=== PATIENT | male | born 1960 | race African-American/Black ===

== ENCOUNTER 2017-12-19 15:45 | Inpatient (IN) | payer BC ==
[2017-12-19] MEDS: NS 0.9% 1000 ML* 1,000 ML IV SCH (17:53)
[2017-12-19] MEDS: Pantoprazole IV* 40 MG IV SCH (18:09)
--- NOTE | 2017-12-19 18:38 | ED ---
Mejia Linares Stephanie, scribed for Henrry Crabtree MD on 12/19/17 at 1555 . GI/ HPI - HPI Summary HPI Summary: The pt is a 57 y/o M BIBA from the ED with c/o blood in the stool that began this morning. The pt reports BM 3x today. Symptoms include syncope with LOC s/p final BM. He denies abd pain. - History of Current Complaint Time Seen by Provider: 12/19/17 15:50 Stated Complaint: GENERAL ILLNESS Hx Obtained From: Patient Onset/Duration: Started Hours Ago, Still Present Timing: Intermittent Current Severity: Moderate Location of Pain: None Associated Signs and Symptoms: Positive: Syncope, Blood w/Stool, Other: - LOC. Negative: Abdominal Pain Aggravating Factor(s): Nothing Alleviating Factor(s): Nothing - Allergy/Home Medications Allergies/Adverse Reactions: Allergies Allergy/AdvReac Type Severity Reaction Status Date / Time No Known Allergies Allergy Verified 12/19/17 15:49 Home Medications: Home Medications Multivitamins/Minerals TAB* [Theragran/minerals TAB*] 1 tab PO DAILY 12/19/17 [ History Confirmed 12/19/17] Olmesartan (NF) [Benicar (NF)] 5 mg PO DAILY 12/19/17 [History Confirmed ] Ubidecarenone [Coq10] 100 mg PO DAILY 12/19/17 [History Confirmed 12/19/17] PMH/Surg Hx/FS Hx/Imm Hx Cardiovascular History: Reports: Hx Hypertension Sensory History: Denies: Hx Legally Blind EENT History: Denies: Hx Deafness - Surgical History Surgery Procedure, Year, and Place: NONE - Family History Known Family History: Negative: Renal Disease Review of Systems Negative: Fever Positive: Other - blood in the stool. Negative: Abdominal Pain Positive: Syncope - LOC. Negative: Slurred Speech All Other Systems Reviewed And Are Negative: Yes Physical Exam - Summary Physical Exam Summary: General: well-appearing, no pain distress Skin: warm, color reflects adequate perfusion, dry Head: normal Eyes: EOMI, BIJAN ENT: normal Neck: supple, nontender Respiratory: CTA, breath sounds present Cardiovascular: RRR Abdomen: soft, nontender Bowel: present Musculoskeletal: normal, strength/ROM intact Neurological: sensory/motor intact, A&O x3 Psychological: affect/mood appropriate Triage Information Reviewed: Yes Vital Signs On Initial Exam: Initial Vitals BP 133/87 12/19/17 15:59 Vital Signs Reviewed: Yes Diagnostics - Vital Signs Vital Signs Resp BP 12/19/17 16:00 20 12/19/17 15:59 133/87 - Laboratory Lab Statement: Any lab studies that have been ordered have been reviewed, and results considered in the medical decision making process. GIGU Course/Dx - Course Course Of Treatment: ADMIT HOSPITALIST - Diagnoses Provider Diagnoses: GI bleed, Syncope - Physician Notifications Discussed Care Of Patient With: Makenzie Cheng Time Discussed With Above Provider: 16:10 Instructed by Provider To: Admit As Inpatient Discharge - Sign-Out/Discharge Documenting (check all that apply): Discharge/Admit/Transfer - Discharge Plan Condition: Stable Disposition: ADMITTED TO [facility] - Billing Disposition and Condition Condition: STABLE Disposition: [facility] [place] The documentation as recorded by the Mejia ricci Stephanie accurately reflects the service I personally performed and the decisions made by , Henrry Crabtree MD.
[2017-12-19 18:43] LABS: ABS Basophils 0 10^3/ul (0-0.2); ABS Eosinophils 0 10^3/ul (0-0.6); ABS Lymphocytes 0.7 10^3/ul (1.0-4.8); ABS Monocytes 0.3 10^3/ul (0-0.8); ABS Neutrophils 9.9 10^3/ul (1.5-7.7); ABS Nucleated RBC 0 10^3/ul; Eosinophil % 0 % (0-6); Hematocrit 28 % (42-52); Hemoglobin 9.1 g/dl (14.0-18.0); Lymphocyte % 6.5 % (25-47); Mean Corpuscular HGB Conc 33 g/dl (31-36); Mean Corpuscular Hemoglobin 30 pg (27-31); Mean Corpuscular Volume 90 fL (80-94); Mean Platelet Volume 9.4 um3 (7.4-10.4); Nucleated Red Blood Cells % 0.1; Platelet Count 150 10^3/ul (150-450); Red Blood Count 3.08 10^6/ul (4.0-5.4); Red Cell Distribution Width 14 % (10.5-15); White Blood Count 10.9 10^3/ul (3.5-10.8)
[2017-12-19 18:51] LABS: INR 0.97 (0.77-1.02)
--- NOTE | 2017-12-19 19:49 | HP ---
HISTORY AND PHYSICAL: DATE OF ADMISSION: 12/19/17 TIME OF ADMISSION: 04:40 p.m. CHIEF COMPLAINT: Bright red blood per rectum. HISTORY OF PRESENT ILLNESS: This is a 57-year-old man, who had been in his usual state of health until this morning when he experienced 3 episodes of bright red blood per rectum and diarrhea. He is currently visiting from [place] and was in [place] for the road race. He went to his bathroom this morning and had one episode of diarrhea that was also associated with bright red blood that filled the bowl. He had no associated cramps or abdominal pain with this. Then, he had a second episode an hour later and then a third episode after that. After the third episode, he stood up from the toilet and passed out. He awoke on the ground after which point EMS was called. He was taken to [facility] where his hemoglobin was found to be 9.5 and he was transferred [place] [facility] [place]. At this time, he has no complaints except feeling hungry. He has no abdominal pain, lightheadedness, or dizziness. No rectal pain. No abdominal cramping. He denies use of NSAIDs. He says he took one Motrin one month ago, and he takes aspirin 81 mg approximately 4 times a week. He drinks alcohol only occasionally and says he usually will only have one drink per weekends. PAST MEDICAL HISTORY: Hypertension. MEDICATIONS: 1. Benicar 5 mg daily. 2. Multivitamin daily. 3. CoQ10. ALLERGIES: No known drug allergies. FAMILY HISTORY: Both parents have hypertension. SOCIAL HISTORY: He lives in [place], [place]. 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 He does not smoke cigarettes. He does not use drugs and he does not use alcohol other than occasionally. REVIEW OF SYSTEMS: As per HPI. The remainder of the 12-point review of systems is negative. PHYSICAL EXAMINATION GENERAL: Alert, well-appearing man, in no distress. VITAL SIGNS: Temperature 98.8, heart rate 87, respiratory rate 20, pulse ox 97 % on room air, blood pressure 120/85. HEENT: Pupils are equal, round, and reactive to light. No conjunctival pallor is noted. Oral mucosa is moist. No pharyngeal exudates or erythema. NECK: No JVP. No cervical or supraclavicular lymphadenopathy. LUNGS: Clear bilaterally. CHEST: Regular rate and rhythm. No murmurs. PMI is nondisplaced. ABDOMEN: Soft, nontender, nondistended. He has a small umbilical hernia. No guarding or rebound. Liver is nonpalpable. No CVA tenderness. RECTAL EXAM: Small amount of dark stool is noted in the vault. He has no external hemorrhoids. No fissures. EXTREMITIES: No edema. No rashes. No ulcers. NEUROLOGIC: Alert and oriented x3 with strength 5/5 throughout. LABORATORY DATA: Labs at [facility], white blood cells 9.7, hemoglobin 9.5, platelets 178. MCV 90, creatinine 1.3, glucose 142, sodium 142, potassium 3.5, chloride 102, bicarb 24. Total bili is 0.5, AST 17, ALT 30, alk phos 45, amylase 80. EMERGENCY DEPARTMENT COURSE: He received 2 L of IV normal saline and Protonix 40 mg IV. ASSESSMENT AND PLAN: This is a 57-year-old man, who had been in his usual state of health until this morning when he had 3 episodes of bright red blood per rectum, who is admitted with a presumed gastrointestinal bleed. 1. Bright red blood per rectum. I suspect this is a lower gastrointestinal bleed given his description of the bleeding and the painless nature. Of note, he did have a colonoscopy 4 years ago, which he reports was unremarkable; however, the results of this will be helpful, but it was done in [place]. He is currently hemodynamically stable and has 3 peripheral IVs. I will start IV Protonix despite the likelihood of this being lower gastrointestinal bleed. I am consulting Gastroenterology, make him n.p.o. after midnight, keep an active type and screen and I did discuss the possibility of a blood transfusion with him; however, he would like to avoid this if at all possible. 2. Hypertension. I am holding his home antihypertensives given his gastrointestinal bleed. 3. Elevated creatinine. His creatinine is noted to be mildly elevated at 1.3; however, I do not have a baseline and this may be related to blood loss. He is receiving IV fluid resuscitation and I will recheck his creatinine in the morning. 4. DVT prophylaxis. Contraindicated in the setting of gastrointestinal bleed. 5. Full code. TIME SPENT: Over 60 minutes was spent on this H and P, 30 minutes of that time was spent interviewing the patient. [id number]/[facility] #: [id number] DENISHA
[2017-12-20] MEDS: NS 0.9% 1000 ML* 1,000 ML IV SCH ×4 (01:19→20:58)
[2017-12-20] MEDS: Pantoprazole IV* 40 MG IV SCH ×2 (04:48→15:39)
[2017-12-20 06:27] LABS: ABS Basophils 0 10^3/ul (0-0.2); ABS Eosinophils 0 10^3/ul (0-0.6); ABS Lymphocytes 1.4 10^3/ul (1.0-4.8); ABS Monocytes 0.5 10^3/ul (0-0.8); ABS Neutrophils 4.8 10^3/ul (1.5-7.7); ABS Nucleated RBC 0 10^3/ul; Eosinophil % 0.5 % (0-6); Hematocrit 24 % (42-52); Lymphocyte % 20.6 % (25-47); Mean Corpuscular HGB Conc 33 g/dl (31-36); Mean Corpuscular Hemoglobin 30 pg (27-31); Mean Corpuscular Volume 90 fL (80-94); Mean Platelet Volume 8.7 um3 (7.4-10.4); Nucleated Red Blood Cells % 0; Platelet Count 125 10^3/ul (150-450); Red Blood Count 2.65 10^6/ul (4.0-5.4); Red Cell Distribution Width 14 % (10.5-15); White Blood Count 6.7 10^3/ul (3.5-10.8)
[2017-12-20 06:42] LABS: INR 1.02 (0.77-1.02)
[2017-12-20 06:43] LABS: EGFR Non-African American 93.5 (>60)
--- NOTE | 2017-12-20 07:34 | PN ---
Subjective Date of Service: 12/20/17 Interval History: No overnight events. He has not had any more hematochezia or melena, but has not had a bowel movement since he's been here. No abdominal pain, no fevers, no lightheadedness, weakness. Family History: Unchanged from Admission Social History: Unchanged from Admission Objective Active Medications: Sodium Chloride (Ns 0.9% 1000 Ml*) 1,000 mls @ 150 mls/hr IV PER RATE [facility] Last Admin: 12/20/17 07:13 Dose: 150 mls/hr Pantoprazole Sodium (Protonix Iv*) 40 mg IV Q12H [facility] Last Admin: 12/20/17 04:48 Dose: 40 mg Vital Signs - 8 hr 12/20/17 12/20/17 12/20/17 04:36 07:15 07:18 Temperature 97.9 F Pulse Rate 91 78 Respiratory 16 16 Rate Blood Pressure 110/64 (mmHg) O2 Sat by Pulse 96 Oximetry Oxygen Devices in Use Now: None Appearance: alert, well appearing Eyes: No Scleral Icterus, - Ears/Nose/Mouth/Throat: NL Teeth, Lips, Gums, Clear Oropharnyx Neck: NL Appearance and Movements; NL JVP Respiratory: Symmetrical Chest Expansion and Respiratory Effort, Clear to Auscultation Cardiovascular: NL Sounds; No Murmurs; No JVD, RRR, No Edema Abdominal: NL Sounds; No Tenderness; No Distention, No Hepatosplenomegaly Lymphatic: No Cervical Adenopathy Extremities: No Edema Skin: No Rash or Ulcers Neurological: Alert and Oriented x 3 Result Diagrams: 12/20/17 06:12 12/20/17 06:12 Assess/Plan/Problems-Billing Assessment: 57 yo man with history of HTN presented to ED 12/19 with 3 episodes of hematochezia and syncope - Patient Problems (1) Hematochezia Current Visit: Yes Status: Acute Code(s): K92.1 - MELENA SNOMED Code(s): 308910709 Comment: Suspect GI bleed Hgb 8.0 this morning; repeat this morning and transfuse for hgb <7.0 Keep active T&S 3 peripheral IVs hemodynamically stable GI consult; will keep him NPO until evaluated by Dr. Zaragoza (2) Syncope Current Visit: Yes Status: Acute Code(s): R55 - SYNCOPE AND COLLAPSE SNOMED Code(s): 322169045 Comment: likely vasovagal versus orthostasis from blood loss, as it occurred after bloody bowel movement yesterday (3) HTN (hypertension) Current Visit: Yes Status: Acute Code(s): I10 - ESSENTIAL (PRIMARY) HYPERTENSION SNOMED Code(s): 31416335 Comment: holding benicar in setting of gi bleed Status and Disposition: inpatient, gi consult
[2017-12-20 12:25] LABS: ABS Basophils 0 10^3/ul (0-0.2); ABS Eosinophils 0 10^3/ul (0-0.6); ABS Lymphocytes 1.5 10^3/ul (1.0-4.8); ABS Monocytes 0.5 10^3/ul (0-0.8); ABS Neutrophils 4.4 10^3/ul (1.5-7.7); ABS Nucleated RBC 0 10^3/ul; Eosinophil % 0.5 % (0-6); Hematocrit 26 % (42-52); Hemoglobin 8.6 g/dl (14.0-18.0); Lymphocyte % 23.2 % (25-47); Mean Corpuscular HGB Conc 33 g/dl (31-36); Mean Corpuscular Hemoglobin 30 pg (27-31); Mean Corpuscular Volume 90 fL (80-94); Mean Platelet Volume 9.5 um3 (7.4-10.4); Nucleated Red Blood Cells % 0.1; Platelet Count 137 10^3/ul (150-450); Red Cell Distribution Width 14 % (10.5-15); White Blood Count 6.4 10^3/ul (3.5-10.8)
--- NOTE | 2017-12-20 15:20 | CONS ---
CC: Dr. Cheng; Dr. Tash Zaragoza GASTROENTEROLOGY CONSULTATION REPORT: DATE OF CONSULT: December 20, 2017 HOSPITAL PROVIDER: Makenzie Cheng DO REASON FOR CONSULTATION: Rectal bleeding. HISTORY OF PRESENT ILLNESS: Mr. Cohn is a very pleasant 57-year-old gentleman who presented to [facility] after experiencing 3 episodes of bright red blood per the rectum with associated diarrhea. 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 Upon further questioning, the patient states that he went to the bathroom in the yesterday morning and saw bright red blood in the toilet but denied any abdominal pain associated with this episode at that time. His second episode occurred about an hour later and then another episode prior to his syncopal episode. He was standing up from the toilet when he passed out. At [facility], he was noted to have a hemoglobin of 9.5 and was hemodynamically stable. He was transferred to [facility] for gastroenterology evaluation. He currently states he feels well, has had no further episodes of rectal bleeding since admission to the hospital yesterday. He does state that he feels hungry. Denies any abdominal pain, nausea, vomiting, hematemesis, melena. Denies a history of NSAID use except for occasional baby aspirin every few days. He admits to occasional alcohol use approximately 1 drink over the weekends. Denies tobacco use. Does see a primary care doctor regularly. In fact, he has an appointment 4 days from now as a regular checkup. His last colonoscopy was performed approximately 5 years ago, per patient he states everything was normal at that time. He denies family history of gastrointestinal malignancies. He denies lightheadedness at this time but does feel slightly weak. His hemoglobin this morning was 8.0 but remains hemodynamically stable. PAST MEDICAL HISTORY: 1. Hypertension. HOME MEDICATIONS: 1. Benicar 5 mg daily. 2. Multivitamin daily. 3. CoQ enzyme 10 daily. ALLERGIES: No known drug allergies. FAMILY HISTORY: Denies history of gastrointestinal malignancies. Both parents have hypertension. SOCIAL HISTORY: He currently lives in [place], [place]. 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 Denies tobacco use and recreational drug use. He does admit to very occasional alcohol use. REVIEW OF SYSTEMS: Review of systems on a 14-point scale have been reviewed. All pertinent positives and negatives have been noted above in the HPI. PHYSICAL EXAM: Vital Signs: Temperature 97.9, pulse 91, respirations 16, oxygenation 96% on room air, blood pressure 110/64. Generally, the patient is alert and oriented x3, in no acute distress, well nourished. HEENT: Normocephalic, atraumatic. Extraocular muscles intact. Anicteric sclerae bilaterally. Neck is supple. Cardiovascular Exam: Regular rate and rhythm. Pulmonary Exam: Clear to auscultation bilaterally. Abdomen: Positive bowel sounds. Soft, nontender, nondistended. No rebound, guarding, or rigidity. No hepatosplenomegaly. Extremities: No clubbing, cyanosis, or edema. Warm to touch. Neurologic: No gross focal deficits are appreciated at this time. LABORATORY AND DIAGNOSTICS: WBC is 6.7, hemoglobin 8.0, hematocrit 24, platelets 125. INR 1.02, PTT 27.2. Sodium 143, potassium 3.7, chloride 112, CO2 27, anion gap 4, BUN 10, creatinine 0.84, glucose 100, calcium 8.5, total bilirubin 0.8, direct bilirubin 0.2, indirect 0.6. AST 17, ALT 18, alkaline phosphatase 43, total protein 5.6, albumin 3.7, globulin 1.9. ASSESSMENT AND PLAN: Mr. Cohn is a very pleasant 57-year-old gentleman with a history of hypertension who presented to [facility] as a transfer from [facility] for further evaluation of 3 episodes of rectal bleeding with associated diarrhea since yesterday morning. He denies previous episode of these symptoms. Upon further questioning, he describes his first bowel movement as bloody with bright red blood having filled in the toilet. He had another episode an hour later and then the third episode another hour later again. This appears to be a diverticular bleed however a colonoscopy will be recommended to further assess the etiology. Denies a history of NSAID use but does admit to occasional use of baby aspirin every few days for cardioprotective effects. He currently states he feels well. He did have a syncopal episode after standing up from the toilet but denies any lightheadedness at this time. He does admit to some mild weakness. He would prefer not to have a blood transfusion if possible as his parents are Jehov[employer]es. His current hemoglobin is 8.0; however, his rectal bleeding has subsided since arrival to the emergency room yesterday. He feels hungry. He does state his last colonoscopy was approximately 5 years ago and he was told that it was normal at that time. Given this painless episodes of rectal bleeding and acute blood loss anemia, I would recommend performing a colonoscopy tomorrow for further evaluation prior to him leaving for [place], [place]. He does have a ride to accompany him as they drive back to [place]. Risks and benefits were discussed with the patient. He is agreeable to this. We will continue to monitor the patient's hemoglobin and transfuse prbcs if his hemoglobin falls less than 7. He is agreeable to this at this point. He will remain on clear liquid diet and become n.p.o. after midnight and we will plan for a colonoscopy tomorrow with Dr. Decker. The case was discussed with Dr. Makenzie Cheng and we are in agreement with this plan. If there are any further questions or concerns, please do not hesitate to contact us. Further recommendations will be provided as the patient's clinical course progresses. [id number]/[facility] #: [id number] DENISHA
[2017-12-20] MEDS ORDERED: PEG 3000 GI LAVAGE* 1 GALLON PO ONE (16:00)
[2017-12-21] MEDS: NS 0.9% 1000 ML* 1,000 ML IV SCH ×2 (03:28→09:58)
[2017-12-21] MEDS: Pantoprazole IV* 40 MG IV SCH ×2 (05:20→17:29)
[2017-12-21 06:36] LABS: ABS Basophils 0 10^3/ul (0-0.2); ABS Eosinophils 0.1 10^3/ul (0-0.6); ABS Lymphocytes 1.3 10^3/ul (1.0-4.8); ABS Monocytes 0.3 10^3/ul (0-0.8); ABS Neutrophils 2.8 10^3/ul (1.5-7.7); ABS Nucleated RBC 0 10^3/ul; Eosinophil % 1.2 % (0-6); Hematocrit 21 % (42-52); Hemoglobin 7.1 g/dl (14.0-18.0); Mean Corpuscular HGB Conc 34 g/dl (31-36); Mean Corpuscular Hemoglobin 30 pg (27-31); Mean Corpuscular Volume 90 fL (80-94); Mean Platelet Volume 9.2 um3 (7.4-10.4); Nucleated Red Blood Cells % 0.1; Platelet Count 120 10^3/ul (150-450); Red Blood Count 2.35 10^6/ul (4.0-5.4); Red Cell Distribution Width 14 % (10.5-15); White Blood Count 4.5 10^3/ul (3.5-10.8)
[2017-12-21 06:52] LABS: EGFR Non-African American 94.8 (>60)
--- NOTE | 2017-12-21 07:51 | PN ---
Subjective Date of Service: 12/21/17 Interval History: Completed prep for colonoscopy last night. When he started moving his bowels around 5pm last night, he noted several episodes of brbpr, which has no resolved and stool is clear liquid. No abdominal pain, cramping. When he walks to the bathroom, he does not feel like he is going to pass out, no lightheadedness. Family History: Unchanged from Admission Social History: Unchanged from Admission Objective Active Medications: Sodium Chloride (Ns 0.9% 1000 Ml*) 1,000 mls @ 150 mls/hr IV PER RATE [facility] Last Admin: 12/21/17 03:28 Dose: 150 mls/hr Pantoprazole Sodium (Protonix Iv*) 40 mg IV Q12H [facility] Last Admin: 12/21/17 05:20 Dose: 40 mg Vital Signs - 8 hr 12/20/17 12/21/17 23:52 03:24 Temperature 98.0 F 98.0 F Pulse Rate 88 86 Respiratory 14 15 Rate Blood Pressure 120/76 103/57 (mmHg) O2 Sat by Pulse 98 98 Oximetry Oxygen Devices in Use Now: None Appearance: alert, well appearing Eyes: - - + conjunctival pallor Ears/Nose/Mouth/Throat: NL Teeth, Lips, Gums Neck: NL Appearance and Movements; NL JVP Respiratory: Clear to Auscultation Cardiovascular: NL Sounds; No Murmurs; No JVD, RRR, No Edema Abdominal: NL Sounds; No Tenderness; No Distention, No Hepatosplenomegaly Lymphatic: No Cervical Adenopathy Extremities: No Edema Skin: No Rash or Ulcers Neurological: Alert and Oriented x 3 Result Diagrams: 12/21/17 06:19 12/21/17 06:19 Assess/Plan/Problems-Billing Assessment: 57 yo man with history of HTN presented to ED 12/19 with 3 episodes of hematochezia and syncope - Patient Problems (1) Hematochezia Current Visit: Yes Status: Acute Code(s): K92.1 - MELENA SNOMED Code(s): 927504784 Comment: Suspect lower GI bleed Hgb 7.1 this morning. I recommended a blood transfusion, but Mr. Cohn declines. His family is Zoroastrian and he says they would be devastated if he received blood. I explained the strain on his heart as evidenced by his EKG. 3 peripheral IVs hemodynamically stable Plan for colonoscopy this morning (2) Syncope Current Visit: Yes Status: Acute Code(s): R55 - SYNCOPE AND COLLAPSE SNOMED Code(s): 687135025 Comment: likely vasovagal versus orthostasis from blood loss, as it occurred after bloody bowel movement Thursday (3) HTN (hypertension) Current Visit: Yes Status: Acute Code(s): I10 - ESSENTIAL (PRIMARY) HYPERTENSION SNOMED Code(s): 67784310 Comment: holding benicar in setting of gi bleed Status and Disposition: inpatient, c-scope today
[2017-12-21] MEDS ORDERED: fentaNYL* 50 MCG/ML 2 ML VIAL (100 MCG VIAL) ONE (14:04)
[2017-12-21] MEDS ORDERED: Midazolam* 1 MG/ML 10 ML VIAL (10 MG) ONE (14:05)
[2017-12-21 15:47] VITALS: BP 137/76
--- NOTE | 2017-12-22 06:49 | DS ---
DISCHARGE SUMMARY: DATE OF ADMISSION: 12/19/17 DATE OF DISCHARGE: 12/21/17 PRIMARY DISCHARGE DIAGNOSIS: Lower gastrointestinal bleed. SECONDARY DISCHARGE DIAGNOSES: 1. Hypertension. 2. Acute blood loss anemia. 3. Acute kidney injury. HOSPITAL COURSE BY PROBLEM: 1. Acute blood loss anemia due to a lower GI bleed. Mr. Cohn presented with 3 episodes of hematochezia that [place] from [facility]. He had never experienced this before and on admission from [facility], his hemoglobin was 9.5. He was type and screened, kept with peripheral IV access to receive volume resuscitation and was admitted to the medical floor. GI was consulted, who agreed with this management. He underwent colonoscopy on the morning of , which showed internal hemorrhoids and diverticulosis. I discussed the case with GI, who believes that his hematochezia could have come either from the internal hemorrhoids or the diverticula and recommend that he is stable for discharge. Mr. Cohn is anxious to be discharged. His hemoglobin janeen at the time of discharge is 7.1. I did recommend blood transfusion this morning given his hemoglobin of 7.1 and his lateral T-wave inversions; however, he refused a blood transfusion due to being a Jehov[employer]'s Witnesses. He remained hemodynamically stable and again did not receive any blood products during this admission. I recommended that he take an iron supplement for a month to augment his bone marrow response and hematopoiesis. He had no further bleeding on the day of discharge. I instructed him to monitor his stools for melena, maroon stool, or hematochezia and if he sees any of those that he should return to the nearest emergency department. 2. Acute kidney injury. On admission, his creatinine was 1.3, after volume resuscitation, his discharge creatinine is 0.8. 3. Syncope, Mr. Cohn complained of an episode of loss of consciousness where he stood up from the toilet after he had a large bloody stool on the morning of admission. This was thought to be secondary to vasovagal plus or minus orthostasis. He received volume resuscitation and had no further episodes of lightheadedness, dizziness, or syncope. He was walking the hallways and had no further episodes. 4. Hypertension, his home Benicar was held and is being resumed at the time of discharge. PHYSICAL EXAM AT THE TIME OF DISCHARGE: Temperature 98 degrees, heart rate 88, respiratory rate 16, pulse ox 100% on room air, blood pressure 137/76. General : Alert, well-appearing man ambulating in his room, in no distress. HEENT: Conjunctival pallor is noted. Pupils are equal and reactive to light. Oral mucosa is moist with no pharyngeal exudates. Neck: No JVP. No cervical or supraclavicular lymphadenopathy. Chest: Regular rate and rhythm. PMI is nondisplaced. Lungs are clear bilaterally. Abdomen is soft, nontender, nondistended. No guarding, rebound, or rigidity. Liver is nonpalpable. Extremities: No edema, no rashes, no ulcers. Skin turgor is normal. TIME SPENT: Sixty minutes was spent on this discharge summary with 30 minutes spent [id number] with the patient. [id number]/[facility] #: [id number] MTDD
--- NOTE | 2017-12-22 07:14 | PRO ---
PROCEDURE REPORT: DATE OF PROCEDURE: 12/21/17 PROCEDURE: Colonoscopy. INDICATION: Rectal bleeding, hemorrhage of rectum and anus. REFERRING PHYSICIAN: None. MEDICATIONS GIVEN: 1. 75 mcg IV fentanyl. 2. 8 mg IV Versed. DESCRIPTION OF PROCEDURE: After the colonoscopy procedure including the risks, benefits, and alternatives not limited to perforation, surgery, and/or were explained to the Mr. Cohn, written consent was then obtained, IV medication was given, and a rectal exam was performed. The rectal exam was unremarkable. An Olympus colonoscope was then inserted into the patient's rectum and advanced very carefully through the entirety of the colon and into the cecal base. Careful and thorough inspection within the cecal base did not reveal any abnormalities. Quality of the preparation was fair. The scope was then withdrawn in a very careful manner over the next 10 minutes through the remainder of the colon. He had very mild diverticulosis predominantly on the left side of the colon. However, he did have it throughout, but again this was very mild. On retroflexion within the rectum, there were large internal hemorrhoids. He also had a small rectal polyp. It was removed with jumbo biopsy forceps. The scope was then withdrawn from the patient. He tolerated the procedure well and was returned to his hospital room in stable condition. IMPRESSION: 1. Complete colonoscopy into the cecum with biopsy polypectomy. 2. Single colon polyp, status post biopsy polypectomy. 3. Very mild diverticulosis. 4. Internal hemorrhoids. 5. The most likely cause for his bleeding could either be the hemorrhoids versus diverticulosis. hemorrhoids. He can likely be discharged to home later on today. He can follow up with his PCP at a later date. [id number]/[facility] #: [id number] [facility]
== END 2017-12-21 18:10 | disposition home or self-care (01) | DRG 244 ==
LOC: ED 15:45 → MED 16:10
PROVIDERS: ADMIT Internal Medicine; ATTEND Internal Medicine
PROC: 0DBP8ZX Excision of Rectum, Via Natural or Artificial Opening Endoscopic, Diagnostic (ICD-10-PCS; principal; 2017-12-21)
DX: K57.31 Diverticulosis of large intestine without perforation or abscess with bleeding (principal); D62 Acute posthemorrhagic anemia; N17.9 Acute kidney failure, unspecified; I10 Essential (primary) hypertension; K64.8 Other hemorrhoids; K63.5 Polyp of colon; R55 Syncope and collapse; Z79.899 Other long term (current) drug therapy; Z82.49 Family history of ischemic heart disease and other diseases of the circulatory system
CPT/HCPCS: 36415; 80048; 80053; 80076; 83735; 85025; 85610; 85730; 86850; 86900; 86901; 88305; 93005; 99156; 99157; 99284; A9270-GY; J2250; J3010